=== PATIENT | male | born 1990 | race Hispanic/Latino ===

== ENCOUNTER 2025-02-20 15:32 | Emergency (ER) | payer OTHER, SELFPAY ==
--- NOTE | ~2025-02-20 | XR_ITS ---
EXAMINATION: XR wrist LT min 3V, 02/20/2025 16:15 [employer] HISTORY: pain, injury COMPARISON: No comparisons available. Findings: Nondisplaced fracture of the distal radius with intra-articular extension. No significant degenerative changes. Soft tissue swelling. Impression: Distal radial fracture Reviewed, dictated and finalized at location P. [employer] Impression: Distal radial fracture
[2025-02-20 16:02] VITALS: BP 136/93; PULSE 84; RESP 16; TEMP 36.8; O2SAT 97
--- NOTE | 2025-02-20 16:04 | ED.GENADULT ---
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 hand dominant 34 y/o male presenting with c/o L. wrist injury. pt reports FOOSH 2 days ago, while sweeping a floor. Denies paresthesias to the LUE. Denies striking his head. Denies LOC. Tx initiated [employer] includes Tylenol. Denies striking his head. Denies LOC. NO hx of previous fracture/surgery to the LUE. No additional complaints. Related Data Allergies Allergy/AdvReac Type Severity Reaction Status Date / Time No Known Allergies Allergy Verified 02/20/25 16:20 Review of Systems Review of Systems: CONSTITUTIONAL: Denies body aches, fever, chills, or sweats. EYES: Denies visual changes, redness, or discharge. ENT: Denies rhinorrhea, congestion, sore throat, or otalgia. CARDIOVASCULAR: Denies chest pain, palpitations, or edema. RESPIRATORY: Denies cough or dyspnea. GASTROINTESTINAL: Denies abdominal pain, nausea, vomiting, or diarrhea. GENITOURINARY: Denies dysuria or hematuria. SKIN: Denies rash, itching, or wounds. MUSCULOSKELETAL: Reports L. wrist pain/injury. Denies back pain NEUROLOGIC: Denies headache, numbness, tingling, or weakness. PSYCH: Denies depression or anxiety. All systems reviewed & are unremarkable except as noted in HPI and below Exam Narrative: GENERAL: Well-appearing, well-nourished, and in no acute distress. HEAD: Normocephalic, atraumatic. EYES: EOMI. ENT: Mucous membranes pink and moist. NECK: Normal AROM. Supple. CHEST: No respiratory distress. HEART: Regular rate Normal peripheral pulses. EXTREMITIES: Normal range of motion. +edema to the L. wrist without erythema, ecchymosis or open wounds. SKIN: Warm, dry, no rash. Capillary refill normal. Normal skin turgor. NEURO: No focal deficits. Alert and oriented x3. Gait steady. PSYCH: Normal affect. No signs of depression or anxiety. Course Course Level of Care: Express Care Visit Vital Signs Vital signs: Vital Signs Temperature 98.3 F 02/20/25 16:02 Pulse Rate 84 11/19/25 16:02 Respiratory Rate 16 02/20/25 16:02 Blood Pressure 136/93 H 02/20/25 16:02 Pulse Oximetry 97 02/20/25 16:02 Oxygen Delivery Room Air 02/20/25 16:02 Temperature 98.3 F 02/20/25 16:02 Pulse Rate 84 02/20/25 16:02 Respiratory Rate 16 02/20/25 16:02 Blood Pressure 136/93 H 02/20/25 16:02 Pulse Oximetry 97 02/20/25 16:02 Oxygen Delivery Room Air 02/20/25 16:02 Procedures Orthopedic Splinting/Casting Injury #1: Splinting/Casting Date: 02/20/25 Splinting/Casting Time: 16:52 Side: left Upper Extremity Injury Location: wrist Upper Extremity Immobilizer: sugar tong splint Splint: customized in ED Pre-Formed: sling OCL: sugar tong Pre-Procedure Neuro Vascular Exam: normal Post-Procedure Neuro Vascular Exam: normal Medical Decision Making MDM Narrative Medical decision making narrative: Discussed elevated blood pressure readings with patient and advised daily BP monitoring and f/u with PCP if persisting. declined prescription pain medication. Vital Signs Vital Signs: Vital Signs Temperature 98.3 F 02/20/25 16:02 Pulse Rate 84 02/20/25 16:02 Respiratory Rate 16 02/20/25 16:02 Blood Pressure 136/93 H 02/20/25 16:02 Pulse Oximetry 97 02/20/25 16:02 Oxygen Delivery Room Air 02/20/25 16:02 Temperature 98.3 F 02/20/25 16:02 Pulse Rate 84 02/20/25 16:02 Respiratory Rate 16 02/20/25 16:02 Blood Pressure 136/93 H 02/20/25 16:02 Pulse Oximetry 97 02/20/25 16:02 Oxygen Delivery Room Air 02/20/25 16:02 Imaging Data Attestation: I personally reviewed and interpreted this imaging study as follows: My impression: distal radius fracture, closed Discharge Plan Discharge Clinical Impression: Elevated blood pressure reading in office without diagnosis of hypertension Distal radial fracture Qualifiers: Encounter type: initial encounter Fracture type: closed Fracture morphology: other intra-articular Laterality: left Qualified Code(s): S52.572A - Other intraarticular fracture of lower end of left radius, initial encounter for closed fracture Fall Qualifiers: Encounter type: initial encounter Qualified Code(s): W19.XXXA - Unspecified fall, initial encounter Patient Disposition: Home Condition: Stable Instructions: Arm Fracture in Adults (DC) Additional Instructions: Go straight to ER should your symptoms become worse or should any new symptoms develop Patient Language: Venezuelan Follow-up/Referrals: PHYSICIAN,BEAD FLIPPER [Primary Care Provider, Internal Medicine] Justin Young MD [Physician, Orthopedics] - 02/21/25 Time of Disposition: 16:32
== END 2025-02-20 17:20 | disposition home or self-care (01) ==
PROVIDERS: Emergency Provider Registered Nurse
DX: R03.0 Elevated blood-pressure reading, without diagnosis of hypertension (principal); S52.572A Other intraarticular fracture of lower end of left radius, initial encounter for closed fracture; W19.XXXA Unspecified fall, initial encounter
CPT/HCPCS: 29125; 73110; 99214; A4565; G0463